=== PATIENT | female | born 1940 | race Caucasian/White ===

== ENCOUNTER → 2017-08-19 17:49 | Outpatient (CLI) | payer MEDICARE, OTHER, SELFPAY ==
--- NOTE | 2017-08-19 18:05 | XR_ITS ---
XR knee LT 3V Ordering Physician: Kimber Chanel Patient Age: 76 years: Female HISTORY: Left knee pain. Long-term. No acute injury TECHNIQUE: 3 view left knee nonweightbearing COMPARISON :No previous knee studies. FINDINGS No fracture. Bones well mineralized. Joint spaces overall fairly well maintained with perhaps some IMPRESSION: Questionable borderline narrowing towards medial compartment. Only mild sharpening is seen at the medial margin medial compartment. Very unimpressive but could reflect some very minor early degenerative changes but it clavicle and extremely minor reticular 4 76-year-old. On close inspection there is some curious curious dome shape bulging density at soft tissues extending medial to the joint, nearly 6 cm height 4 cm transverse medially. On review of soft tissues there is question some vague additional round soft tissue density overlying the medial medial femoral condyle, measuring up 6 cm height x 3 cm transverse.... As well as similar merely be some renteria ovoid soft tissue density just along the lateral aspect the joint. Measuring just less than 4 cm height. Most likely these reflects the rolled soft tissues & adipose & soft tissue posteriorly accentuated on frontal projection with knee in partial flexion . Unlikely significance but warrants clinical correlation. And palpation of soft tissues medial and lateral to the joint . On lateral view suggests only upper normal joint fluid no definitive joint effusion. IMPRESSION ......... no fracture Left knee No acute osseous findings No prominent nor joint effusion suprapatella bursa. Evident Vague Ovoid areas of additional soft tissues density seen on frontal projection both medial & lateral to the knee- most likely reflecting the rolled posterior soft tissue elements & adipose with knee, yielding this view due to partial flexion. However require clinical correlation.-To exclude any additional palpable soft tissue feature overlying the medial femoral condyle and less evident overlying the lateral knee joint..
== END ==
PROVIDERS: PCP Nurse Practitioner Family; Visit Provider Nurse Practitioner Family
DX: M25.562 Pain in left knee (principal); M70.52 Other bursitis of knee, left knee
CPT/HCPCS: 73562

== ENCOUNTER → 2017-10-03 08:23 | Outpatient (CLI) | payer MEDICARE, OTHER, SELFPAY ==
[2017-10-03 09:02] LABS: Basophils # 0.1 K/mm3 (0-0.2); Basophils % 0.7 % (0.1-2.0); Eosinophils # 0.2 K/mm3 (0.0-0.4); Eosinophils % 2.5 % (0.1-12.0); Hematocrit 43.7 % (37.0-47.0); Hemoglobin 14.8 g/dL (12.2-16.2); Mean Corpuscular HGB Conc 33.9 g/dL (31.8-35.4); Mean Corpuscular Hemoglobin 31.8 pg (27.0-31.2); Mean Corpuscular Volume 93.7 fl (81-99); Mean Platelet Volume 7.7 fl (7.4-10.4); Monocytes # 0.5 K/mm3 (0.1-1.0); Monocytes % 6.4 % (1.7-9.3); Neutrophils # 4.9 K/mm3 (1.8-7.8); Neutrophils % 64.4 % (37.0-80.0); Platelet Count 277 K/mm3 (142-424); Red Blood Count 4.66 M/mm3 (4.20-5.40); White Blood Count 7.6 K/mm3 (4.8-10.8)
[2017-10-03 09:15] LABS: Alanine Aminotransferase 26 U/L (12-78); Albumin Level 3.6 gm/dL (3.4-5.0); Alkaline Phosphatase 60 U/L (46-116); Amylase 44 U/L (25-125); Anion Gap 10.4 mEq/L (5-15); Aspartate Amino Transferase 12 U/L (15-37); Bilirubin,Total 0.7 mg/dL (0.2-1.0); Blood Urea Nitrogen 9 mg/dL (7-18); Calcium 9.3 mg/dL (8.5-10.1); Carbon Dioxide 28 mmol/L (21.0-32.0); Chloride 105 mmol/L (98-107); Chol/HDL Ratio 3.6 (1-3.5); Cholesterol 180 mg/dL (140-200); Creatinine,Serum 0.73 mg/dL (0.55-1.02); Estimated Glomerular Filt Rate 77 ml/min (>60); GFR (African American) 94 ML/MIN (>60); Globulin 3.6 gm/dl (1.3-3.2); Glucose 114 mg/dL (74-106); HDL Cholesterol 50 mg/dL (29-89); LDL Cholesterol 114 mg/dL (0-130); Lipase 148 u/L (73-393); Potassium 4.4 mmoL/L (3.5-5.1); Sodium 139 mmol/L (136-145); Total Protein,Serum 7.2 gm/dL (6.4-8.2); Triglycerides 81 mg/dL (30-200); VLDL Cholesterol 16 mg/dL (0-40)
--- NOTE | 2017-10-03 09:37 | CT_ITS ---
CT abdomen pelvis wo/w con CLINICAL INDICATION: Left lower quadrant pain radiating into the mid abdomen and in the left flank area ORDERING PHYSICIAN: Pascual Cee MD PATIENT AGE: 77 years TECHNIQUE: Axial images obtained without and with contrast with sagittal and coronal reformats. All CT scans at the facility use one or more dose reduction, viz: automated exposure control; ma/kV adjustment per patient size (including targeted exams where dose is matched to indication; i.e. head); or iterative reconstruction technique. PROCEDURE: Oral Contrast: Redicat IV Contrast: 75 mL's of Isovue-370. FINDINGS: The lung bases are clear. The liver, spleen, adrenal glands, pancreas, gallbladder, and kidneys have an unremarkable appearance. There is a small hiatal hernia with mild thickening of the distal esophagus nonspecific. A few small nodes are present in the retroperitoneum and mesentery's nonspecific No evidence of appendicitis, diverticulitis, intestinal obstruction, or free air. There is been prior hysterectomy. No pelvic mass, focal inflammatory change, or abnormal fluid collection is evident. There are mild degenerative changes in the lumbar spine. IMPRESSION: No acute abdominal or pelvic findings. Small hiatal hernia No evidence of diverticulitis or obstructing renal or ureteral calculus.
[2017-10-04 10:19] LABS: Vitamin B12 260 pg/mL (232-1245); Vitamin D 25 Hydroxy 15.7 ng/mL (30.0-100.0)
== END ==
PROVIDERS: PCP Internal Medicine Adolescent Medicine; Visit Provider Internal Medicine Adolescent Medicine
DX: R10.32 Left lower quadrant pain (principal); E53.8 Deficiency of other specified B group vitamins; E55.9 Vitamin D deficiency, unspecified; E78.5 Hyperlipidemia, unspecified
CPT/HCPCS: 36415; 74170; 80053; 80061; 82150; 82607; 82652; 83690; 85025; Q9967

== ENCOUNTER → 2018-03-31 11:15 | Outpatient (CLI) | payer MEDICARE, OTHER, SELFPAY ==
--- NOTE | 2018-03-31 11:45 | XR_ITS ---
XR chest 2V HISTORY: ITS.REASON: COUGH , Congestion follow-up pneumonia ORDERING PHYSICIAN: Pascual Cee MD PATIENT AGE: 77 years Technique: PA and lateral chest COMPARISON: May 2014 FINDINGS:. Lungs are well expanded and clear with nothing definitely acute. Perhaps mild hyperexpansion No focal pneumonia. The Subtle hazy appearance towards the cardiac apex reflects anterior fat pad and is unchanged as prior studies.. The tortuous mildly ectatic descending aorta is perhaps slightly more pronounced than in 2014 very Subtle additional fullness of the superior mediastinum continuing towards base of neck-. Most likely reflects slight progressive ectasia/ tortuosity of vessels here since 2014. I would note Subtle rightward displacement of trachea at level of sternal notch.-Would direct physical exam to the neck to evaluate for possible left thyroid enlargement..... Low threshold for ultrasound, or even CT chest, if fullness region of thyroid or neck. Chest wall unremarkable. T-spine intact with some borderline narrowing at the anterior mid thoracic disc spaces. --- IMPRESSION-------- Lungs clear. No pneumonia. No active cardiopulmonary disease Tortuous ectatic aorta slightly more pronounced in 2014 Subtle displacement trachea the to the right, at level of sternal notch. Possible due to generous left lobe thyroid or ectatic vascular structure most likely.. Warrants correlation with palpation of thyroid.-& consider additional imaging
== END ==
PROVIDERS: PCP Internal Medicine Adolescent Medicine; Visit Provider Internal Medicine Adolescent Medicine
DX: J18.0 Bronchopneumonia, unspecified organism (principal)
CPT/HCPCS: 71046

== ENCOUNTER → 2018-05-13 10:36 | Outpatient (CLI) | payer MEDICARE, OTHER, SELFPAY ==
--- NOTE | 2018-05-13 10:39 | XR_ITS ---
XR foot wt bearing LT 3V HISTORY: ITS.REASON: Pain ORDERING PHYSICIAN: Lorena Lawton DPM PATIENT AGE: 77 years COMPARISON: [id number] FINDINGS: No fracture or dislocation. No lytic or blastic change. There is normal mineralization.. The joint spaces are well-preserved. No significant degenerative/arthritic changes. No erosive changes evident. There is a small calcaneal spur as before . Minimal hypertrophic changes are present dorsally at the tarsometatarsal junction IMPRESSION: No change with no acute finding
--- NOTE | 2018-05-13 10:39 | XR_ITS ---
XR foot wt bearing RT 3V HISTORY: Bilateral foot pain ITS.REASON: Pain ORDERING PHYSICIAN: Lorena Lawton DPM PATIENT AGE: 77 years COMPARISON: 12/05/2016 FINDINGS: No fracture or dislocation. No lytic or blastic change. There is normal mineralization.. There are mild hypertrophic changes of the tarsometatarsal junction at the second and third cuneiforms posteriorly. There is a small calcaneal spur. There is no significant change from 12/05/2016. IMPRESSION: No change with no acute finding. Osteoarthritic change of the second and third metatarsal tarsal junction unchanged
== END ==
PROVIDERS: PCP Internal Medicine Adolescent Medicine; Visit Provider Podiatrist
DX: M79.671 Pain in right foot (principal); M79.672 Pain in left foot
CPT/HCPCS: 73630

== ENCOUNTER → 2018-12-16 18:20 | Outpatient (CLI) | payer MEDICARE, OTHER, SELFPAY ==
--- NOTE | 2018-12-16 18:32 | XR_ITS ---
XR knee RT 3V HISTORY: ITS.REASON: RIGHT ANTERIOR KNEE PAIN ORDERING PHYSICIAN: Pascual Cee MD PATIENT AGE: 78 years COMPARISON: None FINDINGS: There are mild osteoarthritic changes of the medial compartment. No fracture or dislocation. No lytic or blastic change. Small suprapatellar effusion suspected. IMPRESSION: Mild osteoarthritis with small suprapatellar effusion
== END ==
PROVIDERS: PCP Internal Medicine Adolescent Medicine; Visit Provider Internal Medicine Adolescent Medicine
DX: M25.561 Pain in right knee (principal)
CPT/HCPCS: 73562

== ENCOUNTER → 2019-04-16 08:15 | Outpatient (CLI) | payer MEDICARE, OTHER, SELFPAY ==
--- NOTE | 2019-04-16 08:32 | XR_ITS ---
PROCEDURE: XR DEXA AXIAL SKELETON CLINICAL HISTORY: OSTEOARTHRITIS, POST MENOPAUSAL SCREENING A COMPARISON: No exams were available for comparison FINDINGS: The the L1-L4 density is 1.328 grams/centimeters sq with a T-score 1.2. Right femoral neck density is 0.757 grams/centimeters sq with T-score -2.0. This is consistent with osteopenia IMPRESSION: Osteopenia with moderate fracture risk. Treatment advised. Suggest follow-up exam April 2021 Dictated by: Avel Hill MD 04/16/2019 16:21 Electronically signed by Avel Hill MD in [place] 04/16/2019 16:21
[2019-04-16 08:47] LABS: Basophils # 0.1 K/mm3 (0-0.2); Basophils % 1.4 % (0.1-2.0); Eosinophils # 0.3 K/mm3 (0.0-0.4); Eosinophils % 3.9 % (0.1-12.0); Hematocrit 42.5 % (37.0-47.0); Lymphocytes # 1.9 K/mm3 (0.7-4.5); Lymphocytes % 24.8 % (10-50); Mean Corpuscular HGB Conc 32.9 g/dL (31.8-35.4); Mean Corpuscular Hemoglobin 30.9 pg (27.0-31.2); Mean Corpuscular Volume 93.9 fl (81-99); Mean Platelet Volume 7.7 fl (7.4-10.4); Monocytes # 0.4 K/mm3 (0.1-1.0); Monocytes % 5.1 % (1.7-9.3); Neutrophils % 64.9 % (37.0-80.0); Platelet Count 264 K/mm3 (142-424); Red Blood Count 4.52 M/mm3 (4.20-5.40); Red Cell Distribution Width 12.9 % (11.5-17.5); White Blood Count 7.7 K/mm3 (4.8-10.8)
[2019-04-16 10:20] LABS: Alanine Aminotransferase 18 U/L (12-78); Albumin Level 3.3 gm/dL (3.4-5.0); Alkaline Phosphatase 61 U/L (46-116); Anion Gap 9.5 mEq/L (5-15); Aspartate Amino Transferase 15 U/L (15-37); Bilirubin,Total 0.5 mg/dL (0.2-1.0); Blood Urea Nitrogen 11 mg/dL (7-18); Calcium 9.2 mg/dL (8.5-10.1); Carbon Dioxide 27 mmol/L (21.0-32.0); Chloride 106 mmol/L (98-107); Creatinine,Serum 0.68 mg/dL (0.55-1.02); Estimated Glomerular Filt Rate 84 ml/min (>60); GFR (African American) 101 ML/MIN (>60); Globulin 3.3 gm/dl (1.3-3.2); Glucose 125 mg/dL (74-106); Magnesium 2.1 mg/dL (1.4-2.2); Potassium 4.5 mmoL/L (3.5-5.1); Sodium 138 mmol/L (136-145); Thyroid Stimulating Hormone 0.46 uIU/ml (0.358-3.740); Total Protein,Serum 6.6 gm/dL (6.4-8.2)
[2019-04-17 17:46] LABS: Hemoglobin A1C 6.7 % (0.0-7.0)
[2019-04-17 21:15] LABS: Vitamin B12 259 pg/mL (232-1245); Vitamin D 25 Hydroxy 15.9 ng/mL (30.0-100.0)
== END ==
PROVIDERS: PCP Internal Medicine Adolescent Medicine; Visit Provider Internal Medicine Adolescent Medicine
DX: Z78.0 Asymptomatic menopausal state (principal); M19.90 Unspecified osteoarthritis, unspecified site; R53.83 Other fatigue; R73.9 Hyperglycemia, unspecified; E55.9 Vitamin D deficiency, unspecified
CPT/HCPCS: 36415; 77080; 80053; 82607; 82652; 83036; 83735; 84443; 85025

== ENCOUNTER → 2019-07-04 10:48 | Outpatient (CLI) | payer MEDICARE, OTHER, SELFPAY ==
[2019-07-04 11:24] LABS: Basophils # 0.1 K/mm3 (0-0.2); Basophils % 0.9 % (0.1-2.0); Eosinophils # 0.3 K/mm3 (0.0-0.4); Eosinophils % 4.5 % (0.1-12.0); Hematocrit 41.3 % (37.0-47.0); Hemoglobin 13.7 g/dL (12.2-16.2); Lymphocytes # 2.3 K/mm3 (0.7-4.5); Lymphocytes % 29.6 % (10-50); Mean Corpuscular HGB Conc 33.2 g/dL (31.8-35.4); Mean Corpuscular Hemoglobin 30.6 pg (27.0-31.2); Mean Corpuscular Volume 92.2 fl (81-99); Mean Platelet Volume 7.9 fl (7.4-10.4); Monocytes # 0.5 K/mm3 (0.1-1.0); Monocytes % 6.9 % (1.7-9.3); Neutrophils # 4.4 K/mm3 (1.8-7.8); Platelet Count 252 K/mm3 (142-424); Red Blood Count 4.48 M/mm3 (4.20-5.40); Red Cell Distribution Width 13.1 % (11.5-17.5); White Blood Count 7.7 K/mm3 (4.8-10.8)
[2019-07-04 13:16] LABS: Hemoglobin A1C 6.3 % (0.0-7.0)
[2019-07-04 15:02] LABS: Alanine Aminotransferase 22 U/L (12-78); Albumin Level 3.5 gm/dL (3.4-5.0); Albumin/Globulin Ratio 1.3 (1.1-1.8); Alkaline Phosphatase 53 U/L (46-116); Anion Gap 12.2 mEq/L (5-15); Aspartate Amino Transferase 16 U/L (15-37); Bilirubin,Total 0.4 mg/dL (0.2-1.0); Blood Urea Nitrogen 9 mg/dL (7-18); Calcium 8.9 mg/dL (8.5-10.1); Carbon Dioxide 26 mmol/L (21.0-32.0); Chloride 105 mmol/L (98-107); Estimated Glomerular Filt Rate 81 ml/min (>60); GFR (African American) 98 ML/MIN (>60); Globulin 2.8 gm/dl (1.3-3.2); Glucose 98 mg/dL (74-106); Potassium 4.2 mmoL/L (3.5-5.1); Sodium 139 mmol/L (136-145); Total Protein,Serum 6.3 gm/dL (6.4-8.2)
[2019-07-05 12:30] LABS: Vitamin B12 1126 pg/mL (232-1245)
[2019-07-07 05:33] LABS: Vitamin D 25 Hydroxy 67.2 ng/mL (30.0-100.0)
== END ==
PROVIDERS: Visit Provider Internal Medicine Adolescent Medicine
DX: E53.8 Deficiency of other specified B group vitamins (principal); E55.9 Vitamin D deficiency, unspecified; I25.10 Atherosclerotic heart disease of native coronary artery without angina pectoris; R73.03 Prediabetes
CPT/HCPCS: 36415; 80053; 82607; 82652; 83036; 85025

== ENCOUNTER → 2019-12-14 07:58 | Outpatient (CLI) | payer MEDICARE, OTHER, SELFPAY ==
[2019-12-14 13:51] LABS: Chloride 104 mmol/L (98-107); Sodium 138 mmol/L (136-145)
[2019-12-14 13:52] LABS: Potassium 4.7 mmoL/L (3.5-5.1)
[2019-12-14 13:54] LABS: Blood Urea Nitrogen 20 mg/dl (7-17); Estimated Glomerular Filt Rate 81 ml/min (>60); GFR (African American) 98 ML/MIN (>60)
[2019-12-14 13:55] LABS: Anion Gap 12.7 mEq/L (5-15); Calcium 9.1 mg/dl (8.4-10.2); Carbon Dioxide 26 mmol/L (22.0-30.0); Glucose 112 mg/dl (74-100)
[2019-12-14 14:32] LABS: Hemoglobin A1C 6.3 % (4.0-6.0)
== END ==
PROVIDERS: Visit Provider Internal Medicine Adolescent Medicine
DX: R73.9 Hyperglycemia, unspecified (principal)
CPT/HCPCS: 36415; 80048; 83036

== ENCOUNTER 2019-12-21 08:00 | Outpatient (RCR) | payer MEDICARE, OTHER, SELFPAY | END 2020-01-06 11:54 | disposition home or self-care (01) | LOC: PT.CARL 08:00 | PROVIDERS: PCP Internal Medicine Adolescent Medicine; Visit Provider Physician Assistant | DX: M51.36 Other intervertebral disc degeneration, lumbar region (principal) | CPT/HCPCS: 97033; 97110; 97140; 97163 ==

== ENCOUNTER 2020-03-27 10:02 | Emergency (ER) | payer MEDICARE, OTHER, SELFPAY ==
[2020-03-27 10:35] VITALS: BP 144/84; PULSE 81; RESP 19; TEMP 37; O2SAT 97; BMI 30.3
--- NOTE | 2020-03-27 10:53 | HMH.EDUTC ---
[facility] [place] Clinical Impression: COVID-19 virus test result unknown Allergic rhinitis Qualifiers: Allergic rhinitis trigger: other Allergic rhinitis seasonality: seasonal Qualified Code(s): J30.89 - Other allergic rhinitis Disposition: Home, Self-Care Condition on Discharge: Good Instructions: Preventing the Spread of Coronavirus Discharge Instructions, Allergic Rhinitis Additional Instructions: No sign of a bacterial infection. Likely viral. Viruses can take 7-14 days to run their course. Nasal saline and bulb syringe or nose [place] to remove nasal drainage to help with nasal congestion. Hard to eat, drink, sleep with nasal congestion so important to keep this cleaned out. Monitor temp. Tylenol or Motrin as needed for pain or fever Encourage fluids, water, Gatorade, Powerade, Pedialyte if /toddler/child Warm salt water gargles Warm fluids Sore throat lozenges Sleep elevated Humidifier/vaporizer Your nasal swab was sent for covid test. call in 6 hours for test result. These results are typically sent to the primary care. Be sure you follow-up in 2-3 days if no improvement so we can review the results and treat if necessary if you do not have a primary care, I recommend to get 1 but in the meantime, call for results. Follow-up immediately for new or worsening symptoms or no noticeable improvement over the next 48-72 hours. watch glucose while on steroids Prescriptions: Fluticasone Propionate [Flonase 50mcg nasal spray 16gm] 1 spr NS DAILY 14 Days #1 bottle Transmission Status: Pending to [facility] predniSONE [Prednisone 20mg Tab] 20 mg PO BID #10 tab Transmission Status: Pending to [id number] Referrals: Pascual Cee MD [Primary Care Provider] - Time of Disposition: 11:01 Medical Decision Making - Paul Inquiry Pt receiving controlled substance: No Vital Signs: 03/27/20 10:35 Temperature 98.6 F Temperature Source Oral Pulse Rate [Right Brachial] 81 Respiratory Rate 19 Blood Pressure [Right Arm] 144/84 H Blood Pressure Mean [Right Arm] 104 Blood Pressure Source [Right Arm] Automatic Cuff Blood Pressure Position [Right Arm] Sitting 02 Sat by Pulse Oximetry 97 Oxygen Delivery Method Room Air Orders (Tests/Meds): ORDERS Category Date Time Status Covid-19 Nasal PCR ([facility]) Routine Lab 03/27/20 10:25 Ordered [facility] [place]PI - General Chief complaint: Urgent Treatment Center Stated complaint: cough,sore throat Time Seen by Provider: 03/27/20 10:54 Mode of Arrival: Ambulatory Source of Information: Patient Limitations: No Limitations Description of Symptoms (Recalled from Triage Doc. by RN): PATIENT C/O COUGHING, SORE THROAT, AND HEADACHE SINCE THIS MORNING HEENT Symptoms (Recalled from RN notes): Yes Resp Symptoms (Recalled from RN notes): Yes Skin Symptoms (Recalled from RN notes): No MS Symptoms (Recalled from RN notes): No Functional Status (Recalled from RN notes): WNL - History of Present Illness Provider Complaint: 79 yr old female presents for cough x 3 days, sore throat, fullness in ears and headache from coughing. Pt states drainage is clear and cough is improved with going into cold air. denies fever or ill contacts - Related Data Home Medications Medication Instructions Recorded Confirmed cholecalciferol (vitamin D3) 1,250 50,000 unit PO QWEEK 07/13/19 09/28/19 mcg (50,000 unit) capsule vitamin B complex 1 tab PO DAILY 07/13/19 09/28/19 escitalopram oxalate 5 mg tablet 5 mg PO DAILY 09/28/19 09/28/19 metformin 500 mg tablet 500 mg PO DAILY 09/28/19 09/28/19 Previous Rx's Medication Instructions Recorded Ibuprofen [Ibuprofen 600mg 600 mg PO Q6H PRN 30 Days #120 tab 03/27/19 Tablet] ciclopirox 8 % topical solution 1 applic TOPICAL DAILY 90 Days 07/13/19 #6.6 ml Fluticasone Propionate [Flonase 1 spr NS DAILY 14 Days #1 bottle 03/27/20 50mcg nasal spray 16gm] predniSONE [Prednisone 20mg 20 mg PO BID #10 tab 03/27/20 Ta
[2020-03-27 11:02] VITALS: BP 144/84; PULSE 81; RESP 19; TEMP 37; O2SAT 97
== END 2020-03-27 11:05 | disposition home or self-care (01) ==
PROVIDERS: Emergency Provider Nurse Practitioner Family; PCP Internal Medicine Adolescent Medicine
DX: Z20.828 Contact with and (suspected) exposure to other viral communicable diseases (principal); J30.89 Other allergic rhinitis; E11.9 Type 2 diabetes mellitus without complications; K21.9 Gastro-esophageal reflux disease without esophagitis; Z79.899 Other long term (current) drug therapy
CPT/HCPCS: G0463; 99201; U0003

== ENCOUNTER 2020-09-01 09:00 | Outpatient (RCR) | payer MEDICARE, OTHER, SELFPAY ==
--- NOTE | 2020-08-16 12:04 | HMH.PTOPEV ---
PT Outpatient Evaluation Rehab PT Outpatient Evaluation Start: 08/16/20 09:35 Freq: Status: Active Protocol: Document 08/16/20 09:35 PDESEROUX (Rec: 08/16/20 10:02 PDESEROUX [id number]) Electronically Signed By Rolly Carmichael, CALIN 08/16/20 09:35 Outpatient Therapy Subjective History Subjective History Pt. is a 79 year old female who presents to outpatient PT clinic w/ complaints of chronic and constant sacral and BLE(RLE> LLE) P! of insidious onset since late last fall. However, pt. reports symptoms started to worsen in 2020, and believes it was from increased sitting d/t sewing masks for children. Pt. describes symptoms as a constant ache in the sacral region, and if it's real bad pt. states her P! will shoot inferior to the knees. Pt. denies any numbness/tingling, but states having constant numbness in her LLE ft., but reports that's been going on for years now. Pt. also denies having bowel/bladder dysfunction when symptoms worsen. Pt. denies having diagnostic imaging nor injections for current pathology. Current medications include Motrin, Tylenol, Aleve, Vitamins, and supplements. PMH includes history of peptic ulcers, hysterectomy, RLE knee ATS sx, and LLE grtr. trcnhtr. bursitis. Chief Complaint Pain,Stiff,Gives out/Unstable, Weakness Symptom Type Ache,Sharp,Dull,Shooting Symptoms Relieved By Heat,OTC Meds,Activity Symptoms Aggravated By Sitting,Standing,Bending/ Stooping,Twisting,Lifting Prior Functional Limitations None Current Functional Limitations Housework,Sleeping,Standing, Sitting,Squatting,Recreation Activity,Balance,Bending/ Stooping Symptom Description
== END 2020-09-28 13:30 | disposition home or self-care (01) ==
LOC: PT.CARL 09:00
PROVIDERS: PCP Internal Medicine Adolescent Medicine; Visit Provider Internal Medicine Adolescent Medicine
DX: M54.5 Low back pain (principal)
CPT/HCPCS: 97110; 97140; 97163

== ENCOUNTER 2020-09-03 09:24 | Emergency (ER) | payer MEDICARE, OTHER, SELFPAY ==
[2020-09-03 09:27] VITALS: BP 172/79; PULSE 71; RESP 18; TEMP 36.6; O2SAT 95; BMI 29.8
[2020-09-03 09:48] LABS: UTC Influenza A Antigen Negative (Negative); UTC Strep Screen (Rapid) Negative (Negative)
[2020-09-03 09:49] LABS: UTC Influenza B Antigen Negative (Negative)
[2020-09-03 09:50] VITALS: BP 159/72; PULSE 79; RESP 16; TEMP 36.6
--- NOTE | 2020-09-03 09:53 | HMH.EDUTC ---
[facility] [place]ression: Tonsill[place] Disposition: Home, Self-Care Condition on Discharge: Good Instructions: Sore Throat Additional Instructions: Start antibiotics today be sure to take it as ordered with the full length of time although you should start feeling better in 24-48 hours. Change toothbrush and toothpaste 24-48 hours after starting antibiotics Tylenol or Motrin as needed for fever or pain Encourage fluids, water, Gatorade, Powerade, try cold fluids, popsicles, ice cream will make it feel better You are contagious for 24 hours. Avoid kissing anyone, no eating or drinking after anyone. You are contagious. Follow-up the ER for new or worsening symptoms or no noticeable improvement over the next 24-48 hours. Follow-up with PCP this week. isolate until covid test is known to be neg Prescriptions: Amoxicillin [Amoxicillin 500mg Tab] 500 mg PO BID 10 Days #20 tab Transmission Status: [facility] Fluticasone Propionate [Flonase 50mcg nasal spray 16gm] 1 spr NS DAILY 14 Days #1 bottle Transmission Status: [facility] predniSONE [Prednisone 20mg Tab] 20 mg PO BID #10 tab Transmission Status: [facility] Referrals: Pascual Cee MD [Primary Care Provider] - Time of Disposition: 10:04 Medical Decision Making - Paul Inquiry Pt receiving controlled substance: No Vital Signs: 09/03/20 09:27 09/03/20 09:50 Temperature 97.9 F 98 F Temperature Source Oral Pulse Rate 79 Pulse Rate [Right] 71 Respiratory Rate 18 16 Blood Pressure 159/72 H Blood Pressure [Right Arm] 172/79 H Blood Pressure Mean [Right Arm] 110 Blood Pressure Source [Right Arm] Automatic Cuff Blood Pressure Position [Right Arm] Sitting 02 Sat by Pulse Oximetry 95 Oxygen Delivery Method Room Air - Lab Data Lab Results 09/03/20 09:33: Influenza Type A Ag Negative, Influenza Type B Ag Negative 09/03/20 09:33: Strep Scn Rapid Clinic Negative Orders (Tests/Meds): ORDERS Category Date Time Status Covid-19 Nasal PCR ([facility]) Routine Lab 09/03/20 09:49 Ordered Strep Screen Confirmation Stat Micro 09/03/20 09:33 [place] [facility] [place] - General Chief complaint: Urgent Treatment Center Stated complaint: sore throat Time Seen by Provider: 09/03/20 09:54 Mode of Arrival: Ambulatory Source of Information: Patient Limitations: No Limitations Description of Symptoms (Recalled from Triage Doc. by RN): pt c/o sore throat, BLEVINS, and body aches that started two days ago. HEENT Symptoms (Recalled from RN notes): Yes (sore throat and BLEVINS) Resp Symptoms (Recalled from RN notes): No Skin Symptoms (Recalled from RN notes): No MS Symptoms (Recalled from RN notes): No Functional Status (Recalled from RN notes): body aches - History of Present Illness Provider Complaint: 79 yr old female presents for sore throat, body aches,chills and nasal congestion for 2 days and becoming worse - Related Data Home Medications Medication Instructions Recorded Confirmed cholecalciferol (vitamin D3) 1,250 50,000 unit PO QWEEK 07/13/19 09/28/19 mcg (50,000 unit) capsule vitamin B complex 1 tab PO DAILY 07/13/19 09/28/19 escitalopram oxalate 5 mg tablet 5 mg PO DAILY 09/28/19 09/28/19 metformin 500 mg tablet 500 mg PO DAILY 09/28/19 09/28/19 Previous Rx's Medication Instructions Recorded Ibuprofen [Ibuprofen 600mg 600 mg PO Q6H PRN 30 Days #120 tab 03/27/19 Tablet] ciclopirox 8 % topical solution 1 applic TOPICAL DAILY 90 Days 07/13/19 #6.6 ml Fluticasone Propionate [Flonase 1 spr NS DAILY 14 Days #1 bottle 03/27/20 50mcg nasal spray 16gm] predniSONE [Prednisone 20mg 20 mg PO BID #10 tab 03/27/20 Tab] Amoxicillin [Amoxicillin 500mg Tab] 500 mg PO BID 10 Days #20 tab 09/03/20 Fluticasone Propionate [Flonase 1 spr NS DAILY 14 Days #1 bottle 09/03/20 50mcg nasal spray 16gm] predniSONE [Prednisone 20mg 20 mg PO BID #10 tab 09/03/20 Tab
== END 2020-09-03 10:08 | disposition home or self-care (01) ==
PROVIDERS: Emergency Provider Nurse Practitioner Family; PCP Internal Medicine Adolescent Medicine
DX: J03.90 Acute tonsillitis, unspecified (principal); E11.9 Type 2 diabetes mellitus without complications; K21.9 Gastro-esophageal reflux disease without esophagitis; Z20.822 Contact with and (suspected) exposure to COVID-19; Z79.899 Other long term (current) drug therapy
CPT/HCPCS: G0463; 87804; 87880; 99202; U0003

== ENCOUNTER → 2020-09-07 11:27 | Outpatient (CLI) | payer MEDICARE, OTHER, SELFPAY | PROVIDERS: PCP Internal Medicine Adolescent Medicine; Visit Provider Nurse Practitioner | DX: Z11.1 Encounter for screening for respiratory tuberculosis (principal) ==

== ENCOUNTER → 2021-08-29 16:46 | Outpatient (CLI) | payer MEDICARE, OTHER, SELFPAY | PROVIDERS: PCP Internal Medicine Adolescent Medicine; Visit Provider Internal Medicine Adolescent Medicine | DX: R00.2 Palpitations (principal) | CPT/HCPCS: 93225; 93226 ==

== ENCOUNTER → 2021-09-04 16:27 | Outpatient (CLI) | payer MEDICARE, OTHER, SELFPAY ==
--- NOTE | 2021-09-04 16:30 | MR_ITS ---
PROCEDURE INFORMATION: Exam: MR Lumbar Spine Without Contrast Exam date and time: 09/04/2021 4:36 PM Age: 80 years old Clinical indication: Low back pain; Additional info: Lt sided sciatica. Lbp worse in lt hip and leg. Symptoms xyrs. Pain worse when standing. No injury or trauma. TECHNIQUE: Imaging protocol: Multiplanar magnetic resonance images of the lumbar spine without intravenous contrast. COMPARISON: [id number] CT abdomen pelvis wo/w con 10/03/2017 9:35 AM FINDINGS: signal intensity within the bone marrow is normal. conus terminates at the mid aspect of L1. Soft tissues are unremarkable. Severe central canal narrowing L2-L3-L3-L4 to a lesser degree L4-L5 and L5-S1 Annular disc bulge and/or disc protrusions diffusely Straightening . Reactive degenerative endplate changes L4 and L5 Multilevel hemangiomas including an atypical hemangioma on the left involving L1 T12-L1: Broad-based annular disc bulge effaces the anterior aspect of the thecal sac mildly so. Central canal and neural foramina are widely patent. Severe facet hypertrophy on the right L1-L2: Mild narrowing of the central canal secondary to facet hypertrophic changes, ligamentum flavum hypertrophic changes, and a broad-based annular bulge. L2-L3: Severe narrowing of the central canal secondary to facet hypertrophic changes, ligamentum flavum hypertrophic changes, and a broad-based annular bulge. L3-L4: Severe narrowing of the central canal secondary to facet hypertrophic changes, ligamentum flavum hypertrophic changes, and a broad-based annular bulge. L4-L5: Moderate degree of central canal narrowing secondary to facet hypertrophic changes, ligamentum flavum hypertrophic changes, and a broad-based annular bulge. Disc lateralizes to the left greater than right L5-S1: Broad-based annular disc bulge lateralizing to the left greater than right. Severe neural foraminal narrowing left greater than right. Severe facet hypertrophic changes on the right IMPRESSION: Severe degenerative disc disease including severe narrowing of the central canal L2-L3, L3-L4 and moderate central canal narrowing L4-L5. Mild narrowing the central canal L1-L2.
== END ==
PROVIDERS: PCP Internal Medicine Adolescent Medicine; Visit Provider Internal Medicine Adolescent Medicine
DX: M54.32 Sciatica, left side (principal)
CPT/HCPCS: 72148; 76376

== ENCOUNTER 2021-12-28 10:00 | Emergency (ER) | payer MEDICARE, OTHER, SELFPAY ==
[2021-12-28 10:22] VITALS: BP 146/81; PULSE 64; RESP 19; TEMP 36.6; O2SAT 97; BMI 29.4
--- NOTE | 2021-12-28 10:42 | HMH.EDUTC ---
[facility] [place] Clinical Impression: Sciatic nerve pain Qualifiers: Laterality: right Qualified Code(s): M54.31 - Sciatica, right side Disposition: Home, Self-Care Condition on Discharge: Good Instructions: Sciatica, DI for Sciatica Additional Instructions: Take prescribed Tramodol as prescribed for pain Follow up with your Family Doctor if no improvement or any worsening of symptoms Straight to ER if any life threatening symptoms Start oral steriods tomorrow Return if needed Prescriptions: predniSONE [Prednisone 20mg Tab] 20 mg PO BID 5 Days #10 tab Transmission Status: Received by [id number] Referrals: Pascual Cee MD [Primary Care Provider] - As needed Time of Disposition: 11:24 Medical Decision Making - Paul Inquiry Pt receiving controlled substance: No Paul was queried for this patient: No Vital Signs: 12/28/21 10:22 Temperature 97.8 F Temperature Source Oral Pulse Rate [Radial] 64 Respiratory Rate 19 Blood Pressure [Right Arm] 146/81 H Blood Pressure Mean [Right Arm] 102 Blood Pressure Source [Right Arm] Automatic Cuff Blood Pressure Position [Right Arm] Sitting 02 Sat by Pulse Oximetry 97 Oxygen Delivery Method Room Air Orders (Tests/Meds): ED MEDICATIONS Discontinued Medications Generic Name Dose Route Start Last Admin Trade Name Freq PRN Reason Stop Dose Admin Ketorolac Tromethamine 30 mg 12/28/21 11:03 12/28/21 11:09 Ketorolac 60mg/2ml Vial IM 12/28/21 11:04 30 mg ONCE ONE Administration Methylprednisolone Sodium Succinate 125 mg 12/28/21 11:03 12/28/21 11:08 Methylprednisolone Sod Succ 125mg Vial IM 12/28/21 11:04 125 mg ONCE ONE Administration Medical Decision Narrative: Patient states that she has taken Torodol and Prednisone in the past without reactions or complications [facility] [place] - General Stated complaint: right leg pain Time Seen by Provider: 12/28/21 10:42 Mode of Arrival: Ambulatory Source of Information: Patient Limitations: No Limitations Description of Symptoms (Recalled from Triage Doc. by RN): PAIN IN RIGHT GROIN THAT RADIATES DOWN RIGHT LEG, NO INJURY HEENT Symptoms (Recalled from RN notes): No Resp Symptoms (Recalled from RN notes): No Skin Symptoms (Recalled from RN notes): No MS Symptoms (Recalled from RN notes): Yes Functional Status (Recalled from RN notes): N/A - History of Present Illness Provider Complaint: Patient states that she is having pain in her right groin area that radiates down right upper leg State that she has a history of sciatica States that she had injection a few weeks ago and has been doing good but helped her grandson push a riding mower and few days later pain started again in her groin and feels like she is having tight muscle in her right upper leg - Related Data Home Medications Medication Instructions Recorded Confirmed cholecalciferol (vitamin D3) 1,250 50,000 unit PO QWEEK 07/13/19 09/28/19 mcg (50,000 unit) capsule vitamin B complex 1 tab PO DAILY 07/13/19 09/28/19 escitalopram oxalate 5 mg tablet 5 mg PO DAILY 09/28/19 09/28/19 metformin 500 mg tablet 500 mg PO DAILY 09/28/19 09/28/19 Previous Rx's Medication Instructions Recorded Ibuprofen [Ibuprofen 600mg 600 mg PO Q6H PRN 30 Days #120 tab 03/27/19 Tablet] ciclopirox 8 % topical solution 1 applic TOPICAL DAILY 90 Days 07/13/19 #6.6 ml Fluticasone Propionate [Flonase 1 spr NS DAILY 14 Days #1 bottle 03/27/20 50mcg nasal spray 16gm] predniSONE [Prednisone 20mg 20 mg PO BID #10 tab 03/27/20 Tab] Amoxicillin [Amoxicillin 500mg Tab] 500 mg PO BID 10 Days #20 tab 09/03/20 Fluticasone Propionate [Flonase 1 spr NS DAILY 14 Days #1 bottle 09/03/20 50mcg nasal spray 16gm] predniSONE [Prednisone 20mg 20 mg PO BID #10 tab 09/03/20 Tab] predniSONE [Prednisone 20mg 20 mg PO BID 5 Days #10 tab 12/28/21 Tab] Allergies Allergy/AdvReac Type Severity Reaction Status Date / Time eryth
[2021-12-28 11:33] VITALS: BP 146/81; PULSE 64; RESP 19; TEMP 36.6; O2SAT 97
== END 2021-12-28 11:34 | disposition home or self-care (01) ==
PROVIDERS: Emergency Provider Nurse Practitioner; PCP Internal Medicine Adolescent Medicine
DX: M54.31 Sciatica, right side (principal)
CPT/HCPCS: 96372; 99212; G0463

== ENCOUNTER → 2022-01-01 12:47 | Outpatient (CLI) | payer MEDICARE, OTHER, SELFPAY ==
--- NOTE | 2022-01-01 12:52 | XR_ITS ---
FINAL REPORT CLINICAL HISTORY: RT HIP PAIN NO INJURY FINDINGS: RIGHT HIP Two views including an AP pelvis demonstrate no acute fracture. There is no dislocation. There is mild degenerative change of both hips. The soft tissues are unremarkable. IMPRESSION: Mild degenerative change bilaterally with no acute bony abnormality. Reviewed, Interpreted and Dictated by Saeed Quinonez III, MD Transcribed by Mallory Pro Authenticated and [facility]
== END ==
PROVIDERS: PCP Internal Medicine Adolescent Medicine; Visit Provider Internal Medicine Adolescent Medicine
DX: M25.551 Pain in right hip (principal)
CPT/HCPCS: 73502

== ENCOUNTER → 2022-05-05 11:25 | Outpatient (CLI) | payer MEDICARE, OTHER, SELFPAY ==
[2022-05-05 11:51] LABS: Basophils # 0.1 K/mm3 (0-0.2); Basophils % 0.7 % (0.1-2.0); Eosinophils # 0.1 K/mm3 (0.0-0.4); Eosinophils % 0.5 % (0.1-12.0); Hematocrit 43.5 % (37.0-47.0); Hemoglobin 14.5 g/dL (12.2-16.2); Lymphocytes # 2.1 K/mm3 (0.7-4.5); Lymphocytes % 14.9 % (10-50); Mean Corpuscular HGB Conc 33.3 g/dL (31.8-35.4); Mean Platelet Volume 8.1 fl (7.4-10.4); Monocytes # 0.5 K/mm3 (0.1-1.0); Monocytes % 3.9 % (1.7-9.3); Neutrophils # 11.3 K/mm3 (1.8-7.8); Platelet Count 294 K/mm3 (142-424); Red Blood Count 4.68 M/mm3 (4.20-5.40); Red Cell Distribution Width 12.8 % (11.5-17.5); White Blood Count 14.1 K/mm3 (4.8-10.8)
[2022-05-05 12:10] LABS: Alanine Aminotransferase 17 U/L (12-78); Alkaline Phosphatase 77 U/L (38-126); Aspartate Amino Transferase 23 U/L (14-36); HDL Cholesterol 51 mg/dl (40-60)
[2022-05-05 12:18] LABS: NT Pro Brain Natriuretic Pep. 148 pg/mL (0-450)
--- NOTE | 2022-05-05 12:27 | XR_ITS ---
PROCEDURE INFORMATION: Exam: XR Chest Exam date and time: 05/05/2022 12:28 PM Age: 81 years old Clinical indication: Pain; Left-sided; Additional info: Left sided chest discomfort TECHNIQUE: Imaging protocol: Radiologic exam of the chest. Views: 2 views. COMPARISON: CR CXR2V XR chest 2V 03/31/2018 12:06 PM FINDINGS: Lungs: Opacity in the left base may represent atelectasis or pneumonia. Pleural spaces: Unremarkable. No pleural effusion. No pneumothorax. Heart/Mediastinum: Unremarkable. No cardiomegaly. Bones/joints: Unremarkable. IMPRESSION: Opacity in the left base may represent atelectasis or pneumonia.
[2022-05-05 12:42] LABS: Albumin Level 4.2 g/dl (3.5-5.0); Bilirubin,Total 0.4 mg/dl (0.2-1.3); Blood Urea Nitrogen 15 mg/dl (7-17); Calcium 10.1 mg/dl (8.4-10.2); Carbon Dioxide 25 mmol/L (22.0-30.0); Chloride 104 mmol/L (98-107); Chol/HDL Ratio 3.6 (1-3.5); Cholesterol 186 mg/dl (140-200); Estimated Glomerular Filt Rate 96 ml/min (>60); GFR (African American) 116 ML/MIN (>60); Glucose 134 mg/dl (74-100); Sodium 136 mmol/L (136-145); Triglycerides 117 mg/dl (30-150); VLDL Cholesterol 23 mg/dL (0-40)
[2022-05-05 13:06] LABS: Albumin/Globulin Ratio 1.6 (1.1-1.8); Globulin 2.6 g/dL (1.3-3.2); Total Protein,Serum 6.8 g/dl (6.3-8.2)
== END ==
PROVIDERS: PCP Internal Medicine Adolescent Medicine; Visit Provider Internal Medicine Adolescent Medicine
DX: R07.89 Other chest pain (principal); R60.0 Localized edema
CPT/HCPCS: 36415; 71046; 80053; 80061; 83735; 83880; 85025

== ENCOUNTER → 2022-08-21 13:12 | Outpatient (CLI) | payer MEDICARE, SELFPAY ==
[2022-08-21 15:15] LABS: Basophils # 0.1 K/mm3 (0-0.2); Basophils % 0.8 % (0.1-2.0); Eosinophils # 0.2 K/mm3 (0.0-0.4); Eosinophils % 1.7 % (0.1-12.0); Hemoglobin 14.2 g/dL (12.2-16.2); Lymphocytes % 25.7 % (10-50); Mean Corpuscular Volume 93.9 fl (81-99); Monocytes # 0.6 K/mm3 (0.1-1.0); Monocytes % 5.5 % (1.7-9.3); Neutrophils # 7.8 K/mm3 (1.8-7.8); Neutrophils % 66.3 % (37.0-80.0); Platelet Count 349 K/mm3 (142-424); Red Blood Count 4.57 M/mm3 (4.20-5.40); Red Cell Distribution Width 13.3 % (11.5-17.5); White Blood Count 11.7 K/mm3 (4.8-10.8)
[2022-08-21 15:47] LABS: Alanine Aminotransferase 20 U/L (12-78); Albumin/Globulin Ratio 1.6 (1.1-1.8); Alkaline Phosphatase 62 U/L (38-126); Anion Gap 13.5 mEq/L (5-15); Aspartate Amino Transferase 25 U/L (14-36); Bilirubin,Total 0.6 mg/dl (0.2-1.3); Blood Urea Nitrogen 10 mg/dl (7-17); Calcium 8.8 mg/dl (8.4-10.2); Carbon Dioxide 24 mmol/L (22.0-30.0); Chloride 99 mmol/L (98-107); Estimated Glomerular Filt Rate 96 ml/min (>60); GFR (African American) 116 ML/MIN (>60); Globulin 2.5 g/dL (1.3-3.2); Glucose 90 mg/dl (74-100); Potassium 4.5 mmoL/L (3.5-5.1); Sodium 132 mmol/L (136-145); Total Protein,Serum 6.5 g/dl (6.3-8.2)
[2022-08-21 16:04] LABS: Free T4 (Free Thyroxine) 1.27 ng/dl (0.78-2.19)
[2022-08-21 16:16] LABS: Thyroid Stimulating Hormone 0.26 uIU/mL (0.465-4.68)
== END ==
PROVIDERS: PCP Internal Medicine Adolescent Medicine; Visit Provider Otolaryngology
DX: K11.8 Other diseases of salivary glands (principal); M85.89 Other specified disorders of bone density and structure, multiple sites; E11.40 Type 2 diabetes mellitus with diabetic neuropathy, unspecified; Z79.84 Long term (current) use of oral hypoglycemic drugs
CPT/HCPCS: 36415; 80053; 84439; 84443; 85025

== ENCOUNTER → 2022-09-04 07:52 | Outpatient (CLI) | payer MEDICARE, SELFPAY ==
--- NOTE | 2022-09-04 07:53 | CT_ITS ---
FINAL REPORT TECHNIQUE: Thin section axial CT images were obtained through the neck after intravenous contrast administration. Coronal and sagittal reformats were also obtained. This study was performed with techniques to keep radiation doses as low as reasonably achievable (ALARA). Individualized dose reduction techniques using automated exposure control or adjustment of mA and/or kV according to the patient''s size were employed. CLINICAL HISTORY: parotid mass FINDINGS: The nasopharynx, oropharynx, hypopharynx and larynx are unremarkable. There are a few small scattered cervical lymph nodes. The parotid and submandibular glands are unremarkable. The thyroid is enlarged and heterogeneous with multiple low-attenuation and calcified lesions consistent with goiter. There is a 1 cm nodule in the midline inferior to the hyoid with attenuation similar to that of the thyroid. This could represent a small deposit of ectopic thyroid tissue. The visualized sinuses are clear. There is no acute osseous abnormality. IMPRESSION: Goiter. Questionable 1 cm deposit of ectopic thyroid. No parotid mass. Reviewed, Interpreted and Dictated by Amandeep Galan MD Transcribed by Felix Santos Authenticated and [facility]
== END ==
LOC: RAD 07:53
PROVIDERS: PCP Internal Medicine Adolescent Medicine; Visit Provider Otolaryngology
DX: K11.8 Other diseases of salivary glands (principal); D37.030 Neoplasm of uncertain behavior of the parotid salivary glands
CPT/HCPCS: 70491; Q9967

== ENCOUNTER 2022-09-25 09:02 | Outpatient (RCR) | payer MEDICARE, SELFPAY ==
--- NOTE | 2022-09-25 12:21 | HMH.PTOPEV ---
PT Outpatient Evaluation Rehab PT Outpatient Evaluation Start: 09/25/22 09:05 Freq: Status: Active Protocol: Document 09/25/22 09:06 PDESEROUCheikh (Rec: 09/25/22 12:21 PDESEROUX [id number]) E-signed By Rolly Carmichael, PT Outpatient Therapy Subjective History Subjective History Pt. is a 82 year old female whom presents to [facility] Out[facility] in [place] for the initial evaluation this date( 09/25/22) w/ c/o subacute on chronic and constant LLE knee P!, edema, and clicking of traumatic onset that has progressively worsened since July 2022. Pt. reports getting her knee tangled up in her bedsheet one morning and instead of lifting the sheet off she tried to just rip her knee out of the sheet when she twisted it. Pt. reports having an increase in P! and edema that has progressively worsened since then. Pt. reports symtoms worsen w/ prolonged standing and working in her garden. Pt. reports having symptom relief w/ sitting and resting. Diagnostic imaging(prior to incident, reports not having one taken since then) indicated increased OA per pt. report. Pt. reports having previous gel injections (x3) that provided some symptom relief. Pt. reports her knee felt 10 years younger w/ the second injection, however, reported not noticing much symptom relief after the third . Pt. also c/o numbness and tingling into the LLE, but reports it being secondary to spinal stenosis. Pt. reports having much symptom relief w / spinal stenosis symptoms w/ previous injections. Pt. denies history of cancer(self)
== END 2022-10-17 07:20 | disposition home or self-care (01) ==
LOC: PT 09:02
PROVIDERS: PCP Internal Medicine Adolescent Medicine; Visit Provider Internal Medicine Adolescent Medicine
DX: M25.562 Pain in left knee (principal)
CPT/HCPCS: 97163

== ENCOUNTER → 2022-10-03 11:40 | Outpatient (POV) | payer MEDICARE, SELFPAY | PROVIDERS: Visit Provider Specialist/Technologist | DX: Z00.00 Encounter for general adult medical examination without abnormal findings (principal) ==

== ENCOUNTER 2024-02-10 12:15 | Outpatient (CLI) | payer MEDICARE, SELFPAY ==
--- NOTE | 2024-02-10 12:21 | XR_ITS ---
FINAL REPORT CLINICAL HISTORY: ACUTE BRONCHOPNEUMONIA FINDINGS: 2 views of the chest were obtained . The heart is normal in size. The mediastinum is within normal limits. The lungs are clear. There is no pneumothorax. Osseous structures are unremarkable. A large hiatal hernia is noted. IMPRESSION: No acute cardiopulmonary process. Reviewed, Interpreted and Dictated by Saeed Quinonez III, MD Transcribed by Keerthi Peoples Authenticated and [facility]
== END 2024-02-10 23:59 | disposition home or self-care (01) ==
LOC: RAD 12:17
PROVIDERS: PCP Internal Medicine Adolescent Medicine; Visit Provider Internal Medicine Adolescent Medicine
DX: J18.0 Bronchopneumonia, unspecified organism (principal)
CPT/HCPCS: 71046

== ENCOUNTER 2024-04-27 10:48 | Outpatient (CLI) | payer MEDICARE, SELFPAY ==
--- NOTE | 2024-04-27 10:50 | FL_ITS ---
FINAL REPORT CLINICAL HISTORY: GERD 2:08 fluoro 90.17 mGy 1512.44 DAP FINDINGS: UPPER GI EXAM HISTORY: Epigastric pain. Gastroesophageal reflux disease PROCEDURE: The patient ingested barium. Effervescent crystals were also administered. Spot and overhead films were obtained. FINDINGS: The esophagus is patulous. There is a paraesophageal hiatal hernia. There is narrowing of the distal esophagus at the gastroesophageal junction. A 13 mm barium tablet passes through the esophagus and into the stomach. No gastroesophageal reflux was demonstrated on the exam. There is marked esophageal dysmotility.The rugal fold pattern of the stomach is normal. The duodenal bulb is normal. Fluoro time: 2 minutes 8 seconds DAP: 1512.44 uGy.m2 Radiation exposure in Reference air Kerma: 90.17 mGy. IMPRESSION: Patulous esophagus with paraesophageal hernia and narrowing at the gastroesophageal junction. Marked esophageal dysmotility. Endoscopic correlation is recommended. Films reviewed , interpreted and dictated by Dr. Raiza Tanner. Transcribed by Rishabh Garcia PA-C. Reviewed, Interpreted and Dictated by Raiza Tanner MD Transcribed by MARY Sebastian Authenticated and [facility]
[2024-04-27] MEDS: E-Z-GASII EFFERVESCENT GRANULES;1PK 1 EACH PO (11:15)
[2024-04-27] MEDS: BARIUM SULFATE (E-Z-HD 340GM);135ML BOTTLE 135 ML PO (11:15)
[2024-04-27] MEDS: BARIUM SULFATE(LIQUID E-Z-PAQUE);355ML BOTTLE 355 ML PO (11:15)
== END 2024-04-27 23:59 | disposition home or self-care (01) ==
LOC: RAD 10:48
PROVIDERS: PCP Internal Medicine Adolescent Medicine; Visit Provider Internal Medicine Adolescent Medicine
DX: K21.9 Gastro-esophageal reflux disease without esophagitis (principal)
CPT/HCPCS: 74246

== ENCOUNTER 2024-11-16 09:57 | Outpatient (RCR) | payer MEDICARE, SELFPAY | END 2024-11-16 23:59 | disposition home or self-care (01) | LOC: PT.CARL 09:57 | PROVIDERS: PCP Internal Medicine Adolescent Medicine; Visit Provider Specialist/Technologist Athletic Trainer | DX: M17.12 Unilateral primary osteoarthritis, left knee (principal) | CPT/HCPCS: 97161 ==

== ENCOUNTER 2024-12-08 09:54 | Outpatient (RCR) | payer MEDICARE, SELFPAY | END 2024-12-08 23:59 | disposition home or self-care (01) | LOC: PT.CARL 09:54 | PROVIDERS: PCP Internal Medicine Adolescent Medicine; Visit Provider Specialist/Technologist Athletic Trainer | DX: M17.12 Unilateral primary osteoarthritis, left knee (principal) | CPT/HCPCS: 97110 ==

== ENCOUNTER 2025-02-08 06:48 | Day surgery (SDC) | payer MEDICARE, SELFPAY ==
--- NOTE | 2025-02-04 07:00 | EXP.HP ---
History of Present Illness *Admission Date: 02/08/25 *History of present illness: Mrs. Wesley is an 84-year-old female who is here for diagnostic EGD. The patient was complaining of some dysphagia and was sent by her PCP for barium swallow and upper GI series. This examination did show a patulous esophagus with paraesophageal hernia and narrowing at the GE junction. There was marked esophageal dysmotility and endoscopic correlation was recommended. The examination is deemed medically necessary for diagnostic EGD. The patient has been seen, interviewed and examined prior to the procedure by both myself and the anesthesia provider. [facility] Disclaimer: The information contained in this section may have been updated after the patient was seen, as this information can be updated by other users. Medical History (Updated 02/08/25 @ 07:16 by Cheryl Gillis RN) Hearing loss, bilateral Goiter Spinal stenosis Arthritis GERD (gastroesophageal reflux disease) Parotid mass Impacted cerumen Tinnitus Surgical History H/O breast biopsy H/O total hysterectomy H/O arthroscopy of right knee Family History Other Cancer Diabetes Heart attack Social History (Updated 02/08/25 @ 07:15 by Cheryl Gillis RN) Smoking Status: Never smoker alcohol intake: never substance use type: denies use current occupational status: retired Travel in the last 8 weeks?: None household members: spouse housing: house Have you lived/traveled outside US in past 30 days?: No Contact w/someone who lives/traveled outside US past 30 days?: No Exposure to someone with infectious disease in past 14 days?: No Do you have a fever (greater than 100.4 F or 38 C)?: No Have you tested positive for COVID-19?: No Exposed to someone with COVID-19 in past 14 days?: No Do you have a sore throat?: No Do you have a cough?: No Do you have any weakness?: No Are you experiencing any nausea/vomitting?: No Do you have any diarrhea?: No Are you experiencing any unusual bleeding?: No Do you have any muscle aches/pain?: No Do you have any abdominal pain?: No Are you experiencing loss of taste or smell?: No Other Medical History Have you received the Pneumonia Vaccine: Yes Review of Systems Review of Systems Review of systems (narrative): Negative *Cardiovascular Comments: Negative *Gastrointestinal Comments: Negative *Genitourinary Comments: Negative *Musculoskeletal Comments: Negative *Neurologic Comments: Negative Meds Home Medications and Allergies Home Medications ?Medication ?Instructions ?Recorded ?Confirmed ?Type ibuprofen 600 mg tablet 600 mg PO Q6H PRN Mild To Moderate 03/27/19 03/09/24 Rx Pain 30 days #120 tabs cholecalciferol (vitamin D3) 1,250 50,000 unit PO QWEEK 07/13/19 03/09/24 History mcg (50,000 unit) capsule ciclopirox 8 % topical solution 1 applic topical DAILY toenail 07/13/19 03/09/24 Rx fungus 3 months #6.6 mL vitamin B complex (B 1 tab PO DAILY 07/13/19 03/09/24 History Complex-Vitamin B12 tablet) fluticasone propionate 50 1 spr intranasal DAILY 14 days ##1 09/03/20 03/09/24 Rx mcg/actuation nasal spray,suspension pregabalin 25 mg capsule 25 mg PO DAILY 10/10/22 03/09/24 History esomeprazole magnesium 40 mg 40 mg PO BID 03/09/24 03/09/24 History capsule,delayed release famotidine 20 mg tablet 20 mg PO DAILY 03/09/24 03/09/24 History tramadol 50 mg tablet 50 mg PO TID 03/09/24 03/09/24 History New Prescriptions to Start Prescriptions: Allergies Allergy/AdvReac Type Severity Reaction Status Date / Time erythromycin base Allergy Other Verified 02/08/25 07:25 Exam *Routine HEENT Exam Head: Present normocephalic Eye: Present EOMI and PERRL ENT: Present mucous membranes moist *Routine Neck Exam Neck: Present supple *Routine Respiratory Exam Respiratory: Present CTA bilaterally *Routine Cardiovascular Exam Cardiovascular: Present RRR *Routine Abdominal Exam Abdominal: Present soft and normoactive bowel sounds; Absent tenderness *Routine Rectal Exam Rectal:: deferred *Routine Genitalia Exam Genitalia:: deferred *Routine Extremities Exam Extremities: Absent cyanosis, clubbing or edema *Routine Skin Exam Skin: Present warm; Absent rash *Routine Neurological Exam Neurological: Present alert and oriented X3 Assessment and Plan *Assessment and plan (1) Dysphagia: Status: Acute Category: Medical Code(s): R13.10 - Dysphagia, unspecified (2) Abnormal barium swallow: Status: Acute Category: Medical Code(s): R93.3 - Abnormal findings on diagnostic imaging of other parts of digestive tract (3) Paraesophageal hernia: Status: Acute Category: Medical Code(s): K44.9 - Diaphragmatic hernia without obstruction or gangrene (4) Esophageal dysmotility: Status: Acute Category: Medical Code(s): K22.4 - Dyskinesia of esophagus (5) Esophageal stricture: Status: Acute Category: Medical Code(s): K22.2 - Esophageal obstruction Plan A/P: 1. Dysphagia with abnormal barium swallow showing possible stricture at GE junction with paraesophageal hernia and marked esophageal dysmotility is the preprocedural diagnosis. The patient will be anesthetized/sedated using MAC sedation. The patient has been seen and examined. Cardiac and lung assessment prior to the examination is stable. Proceed with planned diagnostic EGD.
[2025-02-08 07:12] VITALS: BP 167/80; PULSE 68; RESP 18; TEMP 36.9; O2SAT 97; BMI 27.1
[2025-02-08] MEDS: LACTATED RINGERS 1000ML 1,000 ML 50 ML IV (07:29)
--- NOTE | 2025-02-08 07:47 | P.PNANES_ITS ---
[facility] Disclaimer: The information contained in this section may have been updated after the patient was seen, as this information can be updated by other users. Medical History (Updated 02/08/25 @ 07:16 by Cheryl Gillis RN) Hearing loss, bilateral Goiter Spinal stenosis Arthritis GERD (gastroesophageal reflux disease) Parotid mass Impacted cerumen Tinnitus Surgical History H/O breast biopsy H/O total hysterectomy H/O arthroscopy of right knee Family History Other Cancer Diabetes Heart attack Social History (Updated 02/08/25 @ 07:15 by Cheryl Gillis RN) Smoking Status: Never smoker alcohol intake: never substance use type: denies use current occupational status: retired Travel in the last 8 weeks?: None household members: spouse housing: house Have you lived/traveled outside US in past 30 days?: No Contact w/someone who lives/traveled outside US past 30 days?: No Exposure to someone with infectious disease in past 14 days?: No Do you have a fever (greater than 100.4 F or 38 C)?: No Have you tested positive for COVID-19?: No Exposed to someone with COVID-19 in past 14 days?: No Do you have a sore throat?: No Do you have a cough?: No Do you have any weakness?: No Are you experiencing any nausea/vomitting?: No Do you have any diarrhea?: No Are you experiencing any unusual bleeding?: No Do you have any muscle aches/pain?: No Do you have any abdominal pain?: No Are you experiencing loss of taste or smell?: No [facility] Anesthesia Checklist Patient Identification Patient Identification: Verbal (Name & ) Structural Data Admitted From: Home Planned Operative Procedure/s: egd Consent for Planned Operative Procedure(s) Verified: Yes Airway Assessment Mallampati Score:: Class II C-Spine Mobility Assessed: Yes TMJ Mobility Assessed: Yes Dentition: Good Dentition Neurological Assessment Level of Consciousness: Awake, Alert and Appropriate Anesthesia Plan Anesthesia Risk discussed: Yes Anesthesia Plan: Verified ASA Class: II Anesthesia Type: MAC
--- NOTE | 2025-02-08 08:19 | HMH.PROCNOTE ---
[facility] Procedure Note Date: 02/08/25 Time: 08:38 Procedure Note:: Upper Endoscopy Procedure Report: Esophagogastroduodenoscopy with cold biopsies and TTS balloon dilation Endoscopost: Levy Phillips II, MD Referring Physician: Pascual Cee M.D. Date of Procedure: February 08, 2025 Equipment: Olympus GIF-1100 standard upper endoscope Sedation: MAC sedation Indications: Mrs. Wesley is an 84-year-old female who is here for diagnostic EGD. The patient does have off-and-on acid reflux for years. The patient was complaining of some intermittent dysphagia and was sent by her PCP for barium swallow and upper GI series. This examination did show a patulous esophagus with paraesophageal hernia and narrowing at the GE junction. There was marked esophageal dysmotility and endoscopic correlation was recommended. The patient does state that her dysphagia is primarily to breads and solids. Her last EGD was estimated by the patient at 30 years ago. The patient does get some postprandial belching. She reports no bloating but does have some early satiety. She does have reflux and can awaken with choking. She reports no abdominal pain. She reports regular bowel function. Procedure: Prior to the procedure, a history and physical exam was performed, and patient's medications and allergies were reviewed. The risks, benefits and alternatives of the sedation and procedure were discussed with the patient. All questions were answered and informed consent was obtained. The patient was brought to the procedure room. Patient identification and proposed procedure were verified by the physician and the nurse. The patient was placed in a left lateral decubitus position and the scope was passed under direct vision. Throughout the procedure, the patient's blood pressure, pulse, and oxygen saturations were monitored continuously. The upper GI endoscopy was accomplished without difficulty. The patient tolerated the procedure well. Findings: The scope was passed directly into the upper esophagus and advanced to the third portion of the duodenum. The post bulbar duodenum and duodenal bulb were normal with normal mucosa and conniventes. A cold biopsy was taken from the second portion of the duodenum for the disaccharidase assay. The scope was withdrawn through a normal duodenal bulb and pylorus into the stomach. There was bile reflux with mild linear antral gastropathy. The body of the stomach was normal. Upon retroflexion there was a moderate-sized paraesophageal type hiatal hernia. The diaphragmatic hiatus was at 43 cm from the incisors and the top of the gastric folds and GE junction were at 37 cm from the incisors leaving a 6 cm hiatal hernia. There were no Lb's erosions. Cold biopsies were taken from the antrum. The scope was then withdrawn into the esophagus. There was no evidence of reflux esophagitis or Guidry's. There were strong tertiary contractions and evidence of moderate to marked esophageal dysmotility. There was no corrugation, furrowing, strictures, rings or webs. The entire esophagus was dilated to 60 Swazi/20 mm with a TTS hydrostatic balloon. There was mild resistance at the cricopharyngeus. The remainder of the esophageal mucosa was normal. Impression: 1. Nonerosive GERD with moderate to marked esophageal dysmotility and 6 cm paraesophageal type hiatal hernia 2. Bile reflux with mild linear antral gastropathy Plan: I will follow-up the biopsies and disaccharidase assay. I will discuss the findings and treatment options with the patient and family.
[2025-02-08 08:43] VITALS: BP 166/106; PULSE 78; RESP 18; TEMP 36.3; O2SAT 93
[2025-02-08 08:53] VITALS: BP 171/75; PULSE 68; RESP 18; TEMP 36.3; O2SAT 96
[2025-02-08 09:03] VITALS: BP 165/80; PULSE 67; RESP 18; TEMP 36.3; O2SAT 97
[2025-02-08 09:13] VITALS: BP 160/84; PULSE 67; RESP 18; TEMP 36.3; O2SAT 97
[2025-02-11 14:24] LABS: Interpretation Notes (.); Lactase 12.08 (>/= 14.0); Maltase 122.24 (>/= 110.0); Palatinase 6.56 (>/= 8.5); Reference Notes (.); Sucrase 23.48 (>/= 25.0)
== END 2025-02-08 09:13 | disposition home or self-care (01) ==
PROVIDERS: PCP Internal Medicine Adolescent Medicine; Visit Provider Internal Medicine Gastroenterology
PROC: 0DJ08ZZ Inspection of Upper Intestinal Tract, Via Natural or Artificial Opening Endoscopic (ICD-10-PCS; CPT 43239; principal; 2025-02-08 08:30)
DX: K29.50 Unspecified chronic gastritis without bleeding (principal); B96.81 Helicobacter pylori [H. pylori] as the cause of diseases classified elsewhere; R13.10 Dysphagia, unspecified; K44.9 Diaphragmatic hernia without obstruction or gangrene; K22.4 Dyskinesia of esophagus; K22.2 Esophageal obstruction; H91.93 Unspecified hearing loss, bilateral; E04.9 Nontoxic goiter, unspecified; M48.00 Spinal stenosis, site unspecified; K21.9 Gastro-esophageal reflux disease without esophagitis; M19.91 Primary osteoarthritis, unspecified site; Z90.710 Acquired absence of both cervix and uterus; Z79.899 Other long term (current) drug therapy; Z79.51 Long term (current) use of inhaled steroids; Z88.1 Allergy status to other antibiotic agents
CPT/HCPCS: 43239; 43249; 82657; C1726; J2003; J2704; J7120

== ENCOUNTER 2025-04-26 11:00 | Outpatient (RCR) | payer MEDICARE, SELFPAY | END 2025-04-26 23:59 | disposition home or self-care (01) | LOC: PT.CARL 11:00 | PROVIDERS: Visit Provider Orthopaedic Surgery | DX: Z47.1 Aftercare following joint replacement surgery (principal); Z96.652 Presence of left artificial knee joint | CPT/HCPCS: 97110; 97140; 97161; 97530 ==

== ENCOUNTER 2025-05-06 13:00 | Outpatient (RCR) | payer MEDICARE, SELFPAY | END 2025-05-13 23:59 | disposition home or self-care (01) | LOC: PT.CARL 13:00 | PROVIDERS: Visit Provider Orthopaedic Surgery | DX: Z47.1 Aftercare following joint replacement surgery (principal); Z96.652 Presence of left artificial knee joint | CPT/HCPCS: 97110; 97530 ==